=== PATIENT | male | born 1980 | race Caucasian/White ===

== ENCOUNTER 2021-07-08 21:40 | Inpatient (IN) | payer OTHER, SELFPAY ==
[~2021-07-08 21:40] MED LIST: Iopamidol 370 76% 100 ML VIAL ONE
[2021-07-08] MEDS ORDERED: Ondansetron PF 4 MG/2 ML Vial IVP PRN ×2 (22:21→22:24)
[2021-07-08] MEDS ORDERED: Promethazine HCl 25 MG/ML VIAL IM PRN ×2 (22:21→22:24)
[2021-07-08] MEDS ORDERED: hydrALAZINE 20 MG/ML VIAL SLOW IVP PRN (22:21)
[2021-07-08] MEDS ORDERED: diphenhydrAMINE 25 MG CAP PO PRN (22:24)
[2021-07-08] MEDS ORDERED: HYDROmorphone 10 mg/100 ml CADD IVPB PRN (22:24)
[2021-07-08] MEDS ORDERED: Naloxone HCl 0.4 mg/ml Vial IV PRN (22:24)
[2021-07-08] MEDS ORDERED: diphenhydrAMINE 50 MG/ML VIAL IM PRN (22:24)
[2021-07-08] MEDS ORDERED: diphenhydrAMINE 50 MG/ML VIAL IVP PRN (22:24)
[2021-07-08] MEDS ORDERED: Zolpidem Tartrate 5 MG TAB PO PRN (22:24)
[2021-07-08] MEDS ORDERED: Communication Order-Pharmacy FS SCH (22:30)
[2021-07-08] MEDS ORDERED: Morphine 4 MG/ML VIAL ONE (22:43)
[2021-07-08] MEDS ORDERED: HYDROmorphone 10 MG in Sodium Chloride 0.9% 95 ML IVPB PRN (22:45)
[2021-07-08] MEDS ORDERED: ceFAZolin Sodium/D5W 2 GM in Premix Bag 1 BAG IVPB SCH (23:15)
[2021-07-08] MEDS ORDERED: HYDROmorphone 0.5 MG/0.5 ML SYRINGE ONE (23:17)
[2021-07-08 23:19] LABS: Hemoglobin 14.3 g/dL (14.0-18.0); Mean Corpuscular HGB CONC 34.1 g/dL (32.0-36.0); Mean Corpuscular Hemoglobin 34.3 pg (27.0-31.0); Mean Platelet Volume 6.7 fL (7.4-10.4); Platelet Count 334 thou/uL (130-400); RBC Distribution Width 11.7 % (11.5-14.5); Red Blood Cell (RBC) Count 4.17 mill/uL (4.70-6.10)
[2021-07-08] MEDS ORDERED: Ketamine 50 MG/ML (10ML VIAL) ONE (23:22)
[2021-07-08 23:32] LABS: Anion Gap 10 mmol/L (10-20); BUN (Urea Nitrogen) 13 mg/dL (8.9-20.6); Calc. Creatinine Clearance 0 mL/min (70-130); Calcium 8.8 mg/dL (7.8-10.44); Carbon Dioxide 23 mmol/L (22-29); Chloride 106 mmol/L (98-107); Glucose 114 mg/dL (70-105); Potassium 4.4 mmol/L (3.5-5.1); Sodium 135 mmol/L (136-145)
[2021-07-08 23:48] LABS: Band 19 % (5-11); Lymphocytes 6 % (21-51); MDiff Complete? YES; Monocytes 11 % (0-10); Neutrophil 64 % (42-75); Platelet Morphology Comment Appears Adequate; RBC Morphology Normal
[2021-07-08] MEDS: Lactated Ringer's 1,000 ML IV SCH (23:56)
[2021-07-08] MEDS: Ketorolac Tromethamine 30 MG/ML VIAL IVP SCH (23:57)
[2021-07-09 00:50] VITALS: BMI 29.4
[2021-07-09] MEDS: Acetaminophen 325 MG TAB PO SCH ×5 (02:22→19:07)
[2021-07-09] MEDS: Ketorolac Tromethamine 30 MG/ML VIAL IVP SCH ×4 (06:06→23:51)
[2021-07-09 06:15] LABS: #Basophils 0.1 thou/uL (0.0-0.2); #Eosinphils 0.1 thou/uL (0.0-0.7); #Lymphocytes 3.1 thou/uL (1.20-3.40); #Monocytes 1.5 thou/uL (0.11-0.59); #Neutrophils 10.4 thou/uL (1.40-6.50); %Basophils 0.4 % (0.0-1.0); %Eosinophils 0.6 % (0.0-10.0); %Lymphocytes 20.6 % (21.0-51.0); %Monocytes 9.7 % (0.0-10.0); %Neutrophils 68.7 % (42.0-75.0); Hemoglobin 13.6 g/dL (14.0-18.0); Mean Corpuscular HGB CONC 33.6 g/dL (32.0-36.0); Mean Corpuscular Hemoglobin 34.3 pg (27.0-31.0); Mean Platelet Volume 6.7 fL (7.4-10.4); Platelet Count 314 thou/uL (130-400); RBC Distribution Width 11.7 % (11.5-14.5); Red Blood Cell (RBC) Count 3.97 mill/uL (4.70-6.10); White Blood Cell (WBC) Count 15.1 thou/uL (4.8-10.8)
[2021-07-09 06:28] LABS: INR-International Normal Ratio 1.1; PTT 29.5 sec (22.9-36.1); Prothrombin Time 13.9 sec (12.0-14.7)
[2021-07-09 06:34] LABS: Phosphorus 3.5 mg/dL (2.3-4.7)
[2021-07-09 06:35] LABS: Anion Gap 9 mmol/L (10-20); BUN (Urea Nitrogen) 11 mg/dL (8.9-20.6); Calc. Creatinine Clearance 136 mL/min (70-130); Calcium 8.5 mg/dL (7.8-10.44); Carbon Dioxide 23 mmol/L (22-29); Chloride 107 mmol/L (98-107); Glucose 106 mg/dL (70-105); Magnesium 2.1 mg/dL (1.6-2.6); Potassium 4.1 mmol/L (3.5-5.1); Sodium 135 mmol/L (136-145)
[2021-07-09] MEDS ORDERED: ceFAZolin 2 GM/DEX 5% 100 ML BAG ONE (07:42)
[2021-07-09] MEDS ORDERED: Midazolam HCl 2 mg/2 ml Vial ONE (07:48)
[2021-07-09] MEDS ORDERED: Fentanyl 250 MCG/5 ML VIAL ONE (07:48)
[2021-07-09] MEDS ORDERED: Bupivacaine PF 0.5% 30 ML VIAL ONE (07:55)
[2021-07-09] MEDS ORDERED: Bupivacaine 0.25% 10 ML VIAL ONE (07:55)
[2021-07-09] MEDS ORDERED: PROPOFOL 200 MG/20 ML VIAL ONE (08:21)
[2021-07-09] MEDS ORDERED: Lidocaine 1% PF 5 ML VIAL ONE (08:21)
[2021-07-09] MEDS ORDERED: Phenylephrine 10 MG/ML VIAL ONE (08:21)
[2021-07-09] MEDS ORDERED: Dexamethasone 20 MG/5 ML VIAL ONE (08:21)
[2021-07-09] MEDS ORDERED: Rocuronium Bromide 10 MG/ML (10ML VIAL) ONE (08:21)
[2021-07-09] MEDS ORDERED: Glycopyrrolate 0.2 MG/ML 5 ML SYRINGE ONE (08:21)
[2021-07-09] MEDS ORDERED: Ondansetron PF 4 MG/2 ML Vial ONE (08:21)
[2021-07-09] MEDS: Famotidine/PF 20 mg/2ml Vial SLOW IVP SCH ×2 (09:41→20:18)
[2021-07-09] MEDS: Lactated Ringer's 1,000 ML IV SCH ×3 (09:41→22:29)
[2021-07-09] MEDS: Gabapentin 100 MG CAP PO SCH ×2 (11:17→20:18)
[2021-07-09 11:23] LABS: Hemoglobin 9.3 g/dL (14.0-18.0); Mean Corpuscular HGB CONC 33.2 g/dL (32.0-36.0); Mean Corpuscular Hemoglobin 34.9 pg (27.0-31.0); Mean Platelet Volume 6.8 fL (7.4-10.4); Platelet Count 232 thou/uL (130-400); RBC Distribution Width 11.5 % (11.5-14.5); Red Blood Cell (RBC) Count 2.66 mill/uL (4.70-6.10); White Blood Cell (WBC) Count 18.5 thou/uL (4.8-10.8)
[2021-07-09 11:24] LABS: #Basophils 0.1 thou/uL (0.0-0.2); #Eosinphils 0.1 thou/uL (0.0-0.7); #Lymphocytes 2.1 thou/uL (1.20-3.40); #Monocytes 1.3 thou/uL (0.11-0.59); %Basophils 0.3 % (0.0-1.0); %Eosinophils 0.7 % (0.0-10.0); %Lymphocytes 11.2 % (21.0-51.0); %Neutrophils 80.9 % (42.0-75.0)
[2021-07-09] MEDS ORDERED: Meperidine HCl/PF 25 MG/ML VIAL ONE (14:49)
[2021-07-09] MEDS ORDERED: Ketorolac Tromethamine 30 MG/ML VIAL ONE (15:14)
[2021-07-09] MEDS ORDERED: Fentanyl 100 MCG/2 ML VIAL ONE (15:27)
[2021-07-09] MEDS ORDERED: Acetaminophen 500 MG TAB PO SCH (18:30)
[2021-07-09] MEDS: ceFAZolin Sodium/D5W 2 GM in Premix Bag 1 BAG IVPB SCH (22:34)
[2021-07-09] MEDS: Acetaminophen 500 MG TAB PO SCH (23:52)
[2021-07-10] MEDS: ceFAZolin Sodium/D5W 2 GM in Premix Bag 1 BAG IVPB SCH ×3 (05:52→22:23)
[2021-07-10] MEDS: Ketorolac Tromethamine 30 MG/ML VIAL IVP SCH ×3 (05:53→23:48)
[2021-07-10] MEDS: Acetaminophen 500 MG TAB PO SCH ×4 (05:53→23:49)
[2021-07-10] MEDS ORDERED: Levothyroxine 175 MCG TAB PO SCH (06:00)
[2021-07-10 07:02] LABS: #Eosinphils 0.1 thou/uL (0.0-0.7); #Lymphocytes 2.6 thou/uL (1.20-3.40); #Monocytes 1.4 thou/uL (0.11-0.59); #Neutrophils 8.9 thou/uL (1.40-6.50); %Basophils 0.4 % (0.0-1.0); %Eosinophils 0.4 % (0.0-10.0); %Lymphocytes 19.9 % (21.0-51.0); %Monocytes 10.5 % (0.0-10.0); %Neutrophils 68.8 % (42.0-75.0); Hemoglobin 9.2 g/dL (14.0-18.0); Mean Corpuscular HGB CONC 34.3 g/dL (32.0-36.0); Mean Corpuscular Hemoglobin 34.5 pg (27.0-31.0); Platelet Count 232 thou/uL (130-400); Red Blood Cell (RBC) Count 2.68 mill/uL (4.70-6.10)
[2021-07-10 07:24] LABS: Anion Gap 10 mmol/L (10-20); BUN (Urea Nitrogen) 11 mg/dL (8.9-20.6); Calc. Creatinine Clearance 123 mL/min (70-130); Calcium 7.5 mg/dL (7.8-10.44); Carbon Dioxide 24 mmol/L (22-29); Chloride 107 mmol/L (98-107); Glucose 129 mg/dL (70-105); Magnesium 1.9 mg/dL (1.6-2.6); Phosphorus 1.9 mg/dL (2.3-4.7); Potassium 3.6 mmol/L (3.5-5.1); Sodium 137 mmol/L (136-145)
[2021-07-10] MEDS ORDERED: Potassium Phosphate 30 MMOL in Sodium Chloride 0.9% 250 ML 250 ML IVPB SCH (09:00)
[2021-07-10] MEDS: Lactated Ringer's 1,000 ML IV SCH (09:09)
[2021-07-10] MEDS: Gabapentin 100 MG CAP PO SCH ×2 (09:11→20:39)
[2021-07-10] MEDS: Famotidine/PF 20 mg/2ml Vial SLOW IVP SCH ×2 (09:12→20:40)
[2021-07-10] MEDS ORDERED: traMADol HCl 50 MG TAB PO PRN ×2 (13:15)
[2021-07-10] MEDS ORDERED: Ketorolac Tromethamine 30 MG/ML VIAL IVP SCH (13:30)
[2021-07-10] MEDS ORDERED: Morphine 4 MG/ML VIAL SLOW IVP SCH (15:15)
[2021-07-10] MEDS: traMADol HCl 50 MG TAB PO SCH ×2 (18:08→23:49)
[2021-07-11] MEDS: traMADol HCl 50 MG TAB PO SCH ×4 (05:19→23:38)
[2021-07-11] MEDS: Levothyroxine 175 MCG TAB PO SCH (05:20)
[2021-07-11] MEDS: Acetaminophen 500 MG TAB PO SCH ×4 (05:20→23:39)
[2021-07-11] MEDS: Ketorolac Tromethamine 30 MG/ML VIAL IVP SCH ×2 (05:21→12:01)
[2021-07-11] MEDS: ceFAZolin Sodium/D5W 2 GM in Premix Bag 1 BAG IVPB SCH ×2 (05:22→14:15)
[2021-07-11] MEDS: Gabapentin 100 MG CAP PO SCH ×2 (09:02→20:46)
[2021-07-11] MEDS: Cyclobenzaprine 10 MG TAB PO PRN ×2 (09:02→20:48)
[2021-07-11] MEDS: Famotidine/PF 20 mg/2ml Vial SLOW IVP SCH ×2 (09:03→20:45)
[2021-07-12] MEDS: Acetaminophen 500 MG TAB PO SCH ×4 (05:07→22:40)
[2021-07-12] MEDS: traMADol HCl 50 MG TAB PO SCH ×4 (05:07→22:40)
[2021-07-12] MEDS: Levothyroxine 175 MCG TAB PO SCH (05:07)
[2021-07-12] MEDS: Gabapentin 100 MG CAP PO SCH ×2 (08:29→20:08)
[2021-07-12] MEDS: Famotidine/PF 20 mg/2ml Vial SLOW IVP SCH ×2 (08:29→20:08)
[2021-07-12] MEDS: Docusate 100 MG CAP PO SCH ×2 (10:22→21:46)
[2021-07-12] MEDS: Polyethylene Glycol 3350 17 GM Packet PO SCH (10:22)
[2021-07-12] MEDS: Enoxaparin Sodium 40 MG/0.4 ML SYRINGE SC SCH (10:22)
[2021-07-12] MEDS ORDERED: Ibuprofen 800 MG TAB PO PRN (13:09)
[2021-07-12] MEDS ORDERED: Ibuprofen 200 MG TAB PO PRN (13:46)
[2021-07-12] MEDS: Cyclobenzaprine 10 MG TAB PO PRN ×2 (14:12→22:40)
[2021-07-13] MEDS: traMADol HCl 50 MG TAB PO SCH ×2 (05:33→12:43)
[2021-07-13] MEDS: Levothyroxine 175 MCG TAB PO SCH (05:33)
[2021-07-13] MEDS: Acetaminophen 500 MG TAB PO SCH ×2 (05:33→12:43)
[2021-07-13 06:53] LABS: Hemoglobin 9.8 g/dL (14.0-18.0); Mean Corpuscular Hemoglobin 34.1 pg (27.0-31.0); Mean Platelet Volume 6.6 fL (7.4-10.4); Platelet Count 408 thou/uL (130-400); RBC Distribution Width 12.3 % (11.5-14.5); Red Blood Cell (RBC) Count 2.88 mill/uL (4.70-6.10); White Blood Cell (WBC) Count 14.7 thou/uL (4.8-10.8)
[2021-07-13] MEDS: Polyethylene Glycol 3350 17 GM Packet PO SCH (08:10)
[2021-07-13] MEDS: Docusate 100 MG CAP PO SCH (08:10)
[2021-07-13] MEDS: Enoxaparin Sodium 40 MG/0.4 ML SYRINGE SC SCH (08:10)
[2021-07-13] MEDS: Gabapentin 100 MG CAP PO SCH (08:10)
[2021-07-13 16:21] VITALS: BP 115/73; TEMP 97.9
== END 2021-07-13 16:35 | disposition home or self-care (01) | DRG 480 ==
LOC: ERS 21:40 → SURG A 22:21
PROVIDERS: ADMIT Surgery; ATTEND Surgery
PROC: 0QS734Z Reposition Left Upper Femur with Internal Fixation Device, Percutaneous Approach (ICD-10-PCS; principal; 2021-07-09)
PROC: 0PSJ04Z Reposition Left Radius with Internal Fixation Device, Open Approach (ICD-10-PCS; 2021-07-09)
PROC: 30233N1 Transfusion of Nonautologous Red Blood Cells into Peripheral Vein, Percutaneous Approach (ICD-10-PCS; 2021-07-09)
DX: S52.502A Unspecified fracture of the lower end of left radius, initial encounter for closed fracture (principal); S72.22XA Displaced subtrochanteric fracture of left femur, initial encounter for closed fracture; W11.XXXA Fall on and from ladder, initial encounter; E03.9 Hypothyroidism, unspecified; I10 Essential (primary) hypertension; F17.210 Nicotine dependence, cigarettes, uncomplicated; Z20.822 Contact with and (suspected) exposure to COVID-19; Y92.89 Other specified places as the place of occurrence of the external cause
CPT/HCPCS: 36415; 36430; 76000; 80048; 83735; 84100; 85025; 85027; 85610; 85730; 86850; 86900; 86901; C1713; G0390; J1100; J1170; J1650; J1885; J2175; J2250; J2270; J2370; J2405; J2704; J3010; J3490; J7050; J7120; P9016; Q9967; S0020; S0028

== ENCOUNTER 2021-12-12 11:57 | Outpatient (CLI) | payer SELFPAY | END 2021-12-12 11:58 | disposition home or self-care (01) | LOC: LABBT 11:57 | PROVIDERS: ATTEND Orthopaedic Surgery | DX: S72.002D Fracture of unspecified part of neck of left femur, subsequent encounter for closed fracture with routine healing (principal); Z20.822 Contact with and (suspected) exposure to COVID-19 | CPT/HCPCS: U0003; U0005 ==

== ENCOUNTER 2021-12-12 12:45 | Observation (INO) | payer SELFPAY ==
[2021-12-23] MEDS ORDERED: fentaNYL Citrate/PF 100 MCG/2 ML SYRINGE ONE (06:22)
[2021-12-23] MEDS ORDERED: Sodium Chloride 0.9% 100 ML ONE (07:24)
[2021-12-23] MEDS ORDERED: CEFAZOLIN 2 GM VIAL ONE (07:24)
[2021-12-23] MEDS ORDERED: Glycopyrrolate 0.2 MG/ML 5 ML SYRINGE ONE (07:34)
[2021-12-23] MEDS ORDERED: Lidocaine 1% PF 5 ML VIAL ONE (07:34)
[2021-12-23] MEDS ORDERED: PROPOFOL 200 MG/20 ML VIAL ONE (07:34)
[2021-12-23] MEDS ORDERED: Ketorolac Tromethamine 30 MG/ML VIAL ONE (07:34)
[2021-12-23] MEDS ORDERED: Ondansetron PF 4 MG/2 ML Vial ONE (07:34)
[2021-12-23] MEDS ORDERED: Bupivacaine HCl 0.5%/Epinephrine 1:200,000/PF 30 ml Vial ONE (07:34)
[2021-12-23] MEDS ORDERED: Rocuronium Bromide 10 MG/ML (10ML VIAL) ONE (07:34)
[2021-12-23] MEDS ORDERED: Dexamethasone 20 MG/5 ML VIAL ONE (07:34)
[2021-12-23] MEDS ORDERED: Ondansetron HCl/PF 4 MG/2 ML Vial IVP PRN (09:44)
[2021-12-23] MEDS ORDERED: Promethazine HCl 25 MG/ML VIAL IVPB PRN (09:44)
[2021-12-23] MEDS ORDERED: Promethazine HCl 25 MG/ML VIAL IM PRN (09:44)
[2021-12-23] MEDS ORDERED: Ondansetron PF 4 MG/2 ML Vial SLOW IVP PRN (09:48)
[2021-12-23] MEDS ORDERED: Communication Order-Pharmacy FS PRN (09:48)
[2021-12-23] MEDS ORDERED: Fentanyl 100 MCG/2 ML VIAL ONE ×2 (09:48→10:18)
[2021-12-23] MEDS ORDERED: Fentanyl 100 MCG/2 ML VIAL SLOW IVP PRN (09:48)
[2021-12-23] MEDS ORDERED: HYDROmorphone 2 MG/ML VIAL ONE (09:55)
[2021-12-23] MEDS: HYDROcodone/Acetaminophen 10/325 mg Tablet PO PRN ×3 (12:13→20:34)
[2021-12-23] MEDS: traMADol HCl 50 MG TAB PO PRN (14:58)
[2021-12-23] MEDS: CEFAZOLIN 2 GM in Sodium Chloride 0.9% 100 ML IVPB SCH ×2 (15:06→23:35)
[2021-12-23] MEDS ORDERED: HYDROcodone/Acetaminophen 10/325 mg Tablet PO PRN (18:19)
[2021-12-23] MEDS ORDERED: Famotidine 20 MG TAB PO SCH (18:30)
[2021-12-23 19:19] VITALS: BMI 28.3
[2021-12-23] MEDS: Aspirin 81 mg Enteric Coated Tablet PO SCH (20:34)
[2021-12-24] MEDS: HYDROcodone/Acetaminophen 10/325 mg Tablet PO PRN ×4 (00:20→14:35)
[2021-12-24] MEDS: traMADol HCl 50 MG TAB PO PRN ×2 (01:46→08:22)
[2021-12-24] MEDS ORDERED: Levothyroxine Sodium 50 MCG TAB PO SCH (06:00)
[2021-12-24 06:14] LABS: #Eosinphils 0.1 thou/uL (0.0-0.7); #Lymphocytes 2.8 thou/uL (1.20-3.40); #Monocytes 1.6 thou/uL (0.11-0.59); #Neutrophils 13.2 thou/uL (1.40-6.50); %Basophils 0.3 % (0.0-1.0); %Eosinophils 0.4 % (0.0-10.0); %Lymphocytes 16.1 % (21.0-51.0); %Monocytes 8.8 % (0.0-10.0); %Neutrophils 74.5 % (42.0-75.0); Hemoglobin 12.8 g/dL (14.0-18.0); Mean Corpuscular HGB CONC 33.2 g/dL (32.0-36.0); Mean Corpuscular Hemoglobin 34.1 pg (27.0-31.0); Platelet Count 328 thou/uL (130-400); RBC Distribution Width 12.6 % (11.5-14.5); Red Blood Cell (RBC) Count 3.76 mill/uL (4.70-6.10); White Blood Cell (WBC) Count 17.7 thou/uL (4.8-10.8)
[2021-12-24] MEDS: Aspirin 81 mg Enteric Coated Tablet PO SCH (08:23)
[2021-12-24] MEDS ORDERED: Famotidine 20 MG TAB PO SCH (09:00)
[2021-12-24 11:41] VITALS: BP 114/75; TEMP 97.7
== END 2021-12-24 15:40 | disposition home or self-care (01) ==
LOC: EDSTATUS 12:45 → INTOOBSV 12-23 05:35 → SURG A 12-23 05:35 → SJJU 12-23 11:11
PROVIDERS: ADMIT Orthopaedic Surgery; ATTEND Orthopaedic Surgery
PROC: 0QS704Z Reposition Left Upper Femur with Internal Fixation Device, Open Approach (ICD-10-PCS; principal; 2021-12-23)
PROC: 3E0T3BZ Introduction of Anesthetic Agent into Peripheral Nerves and Plexi, Percutaneous Approach (ICD-10-PCS; 2021-12-23)
DX: S72.22XK Displaced subtrochanteric fracture of left femur, subsequent encounter for closed fracture with nonunion (principal); F17.200 Nicotine dependence, unspecified, uncomplicated; G89.29 Other chronic pain; Z79.890 Hormone replacement therapy; Z79.899 Other long term (current) drug therapy; W19.XXXD Unspecified fall, subsequent encounter
CPT/HCPCS: 36415; 76000; 85025; C1713; C1776; J0690; J1100; J1170; J1885; J2405; J2704; J3010; J3490

== ENCOUNTER 2023-04-26 11:08 | Day surgery (SDC) | payer BC ==
[2023-04-20 15:51] VITALS: BMI 23.6
[2023-04-26] MEDS ORDERED: Sodium Chloride 0.9% 100 ML ONE (13:27)
[2023-04-26] MEDS ORDERED: CEFAZOLIN 2 GM VIAL ONE (13:27)
[2023-04-26] MEDS ORDERED: Lidocaine 1% PF 5 ML VIAL ONE (14:06)
[2023-04-26] MEDS ORDERED: PROPOFOL 200 MG/20 ML VIAL ONE (14:06)
[2023-04-26] MEDS ORDERED: fentaNYL 50 mcg/mL 1 mL Vial ONE ×2 (14:11→15:00)
[2023-04-26] MEDS ORDERED: Bupivacaine PF 0.5% 30 ML VIAL ONE (14:22)
== END 2023-04-26 16:20 | disposition home or self-care (01) ==
LOC: SDC 11:08
PROVIDERS: ATTEND Orthopaedic Surgery
PROC: 0QP704Z Removal of Internal Fixation Device from Left Upper Femur, Open Approach (ICD-10-PCS; principal; 2023-04-26)
DX: T85.848A Pain due to other internal prosthetic devices, implants and grafts, initial encounter (principal); S72.22XK Displaced subtrochanteric fracture of left femur, subsequent encounter for closed fracture with nonunion; Z79.899 Other long term (current) drug therapy; F17.200 Nicotine dependence, unspecified, uncomplicated; Y83.1 Surgical operation with implant of artificial internal device as the cause of abnormal reaction of the patient, or of later complication, without mention of misadventure at the time of the procedure; X58.XXXD Exposure to other specified factors, subsequent encounter
CPT/HCPCS: J2704; J3010; J3490; S0020